=== PATIENT | male | born 1970 | race Caucasian/White ===

== ENCOUNTER 2020-05-15 17:19 | Outpatient (REF) | payer MEDICAID, SELFPAY | END 2020-05-15 17:20 | disposition home or self-care (01) | LOC: HO.LAB 17:19 | PROVIDERS: Visit Provider Internal Medicine | DX: Z20.828 Contact with and (suspected) exposure to other viral communicable diseases (principal) | CPT/HCPCS: C9803; U0003 ==

== ENCOUNTER 2020-07-07 10:43 | Outpatient (REF) | payer MEDICAID, SELFPAY ==
--- NOTE | 2020-07-07 10:53 | XR_ITS ---
EXAMINATION: XR LUMBOSACRAL SPINE CLINICAL INFORMATION: Lower back pain. COMPARISON: Lumbar spine radiographs dated 07/13/2018. TECHNIQUE: Three views of the lumbosacral spine. FINDINGS: Normal vertebral body alignment. The lumbar lordosis is maintained. No acute fracture or subluxation. No loss of vertebral body height. Mild loss of intervertebral disc height with anterior endplate osteophytes at L5-S1. No lytic or blastic osseous lesion. No abnormal soft tissue calcification. XR/XR lumbar spine 2-3V IMPRESSION: [id number] degenerative disc disease at L5-S1.
== END 2020-07-07 10:44 | disposition home or self-care (01) ==
LOC: HO.XRAY 10:43
PROVIDERS: PCP Internal Medicine; Visit Provider Internal Medicine
DX: M54.5 Low back pain (principal)
CPT/HCPCS: 72100

== ENCOUNTER → 2020-07-13 14:31 | Outpatient (BNVA) | payer MEDICAID, SELFPAY | PROVIDERS: PCP Internal Medicine; Visit Provider Anesthesiology | DX: M54.5 Low back pain (principal) | CPT/HCPCS: 99202 ==

== ENCOUNTER 2020-08-03 13:21 | Outpatient (REF) | payer MEDICAID, SELFPAY ==
--- NOTE | ~2020-08-03 | CT_ITS ---
EXAMINATION: CT PELVIS WITHOUT CONTRAST CLINICAL INFORMATION: Low back pain. COMPARISON: None TECHNIQUE: Helical scanning was performed with submillimeter collimation through the pelvis. Sagittal and coronal multiplanar 2-D reconstructions were obtained. This CT examination was performed using dose optimization techniques as appropriate, variously including the following: *Automated exposure control *Adjustment of mA and/or kV according to patient size (this includes techniques or standardized protocols for targeted exams where dose is matched to indication/reason for exam; i.e. extremities or head) *Use of iterative reconstruction technique DLP: 2103 mGy-cm FINDINGS: PELVIS: There is scattered sigmoid and visualized colonic diagnosis without any mural thickening and pericolic fat stranding. The bladder is nondistended. There are several phleboliths in the pelvis. The prostate gland is normal size with central gland calcification. There is no evidence of abdominal wall hernia. There is round soft tissue mass along the posterior abdomen measuring 10.7 x 8.7 cm and 49 Hounsfield units, likely hematoma or solid lesion. There is punctate fat within measuring -42 Hounsfield units. OSSEOUS STRUCTURES: There are degenerative disc changes in L5-S1 disc level with endplate Schmorl's node and vacuum disc phenomena. CT/CT pelvis wo con IMPRESSION: Moderate size well-defined round soft tissue mass along the posterior abdominal wall. Differential diagnoses includes hematoma, less likely lymphangioma or a solid mass.
== END 2020-08-03 13:22 | disposition home or self-care (01) ==
LOC: HO.CT 13:21
PROVIDERS: Visit Provider Anesthesiology
DX: M54.5 Low back pain (principal)
CPT/HCPCS: 72192

== ENCOUNTER → 2020-09-02 15:40 | Outpatient (BNVA) | payer MEDICAID, SELFPAY | PROVIDERS: PCP Internal Medicine; Visit Provider Anesthesiology ==

== ENCOUNTER → 2020-09-14 13:38 | Outpatient (BNVA) | payer MEDICAID, SELFPAY | PROVIDERS: PCP Internal Medicine; Visit Provider Surgery | DX: S30.1XXA Contusion of abdominal wall, initial encounter (principal); E66.01 Morbid (severe) obesity due to excess calories | CPT/HCPCS: 99202 ==

== ENCOUNTER 2023-06-15 21:46 | Emergency (ER) | payer MEDICARE, MEDICAID, SELFPAY ==
--- NOTE | 2023-06-15 | ECG_ITS ---
Test Reason : AFIB Blood Pressure : / mmHG Vent. Rate : 109 BPM Atrial Rate : 109 BPM P-R Int : 168 ms QRS Dur : 082 ms QT Int : 328 ms P-R-T Axes : 065 -13 040 degrees QTc Int : 441 ms Sinus tachycardia Nonspecific ST and T wave abnormality Abnormal ECG No previous ECGs available Referred By: Generic ED Physician Electronically Signed By:RICHARD FATIMA MD
[2023-06-15 22:36] VITALS: BP 154/89; PULSE 114; RESP 18; TEMP 36.9; O2SAT 96; BMI 36.2
[2023-06-15 23:22] LABS: COVID-19 Test Positive (Negative); IDNOW Serial# BCCEAD1C
--- NOTE | 2023-06-16 00:46 | ED.URI ---
HPI - URI/Sore Throat General Chief Complaint: Upper Respiratory Symptoms Stated Complaint: not feeling well/home test covid+ Time Seen by Provider: 06/16/23 00:44 Source: patient Mode of arrival: ambulatory Limitations: no limitations History of Present Illness HPI Narrative: 53 yo male with PMH of afib and HTN - he is on eliquis, vaccinated against COVID x 4. He had sore throat and some feverish chills feeling but did not take tylenol. He states he has no CP/SOB he states he is actually not feeling bad. He was just nervous because last time he had COVID he was hospitalized for one week. He wants paxlovid or option for paxlovid. thinks his HR is up as he is anxious MD elicited complaint: fever and sore throat Onset (ago): day(s) (1) Consistency: improved (states it is almost gone) Severity: mild Description of mucous: clear Able to tolerate fluids by mouth: Yes Exacerbating factors: swallowing Relieving factors: nothing Associated symptoms: fever and chills Treatments prior to arrival: none Related Data Home Medications Medication Instructions Recorded Confirmed fluvoxamine 50 mg tablet 50 mg PO DAILY 07/13/20 09/14/20 hydrochlorothiazide 25 mg tablet 25 mg PO DAILY 07/13/20 09/14/20 lisinopril 5 mg tablet 5 mg PO DAILY 07/13/20 09/14/20 aripiprazole 5 mg tablet 5 mg PO DAILY 09/14/20 09/14/20 Previous Rx's Medication Instructions Recorded azithromycin 250 mg tablet See Rx Instructions PO .COMPLEX #6 04/04/22 tabs prednisone 20 mg tablet 60 mg (3 x 20 mg) PO DAILY #9 tabs 04/04/22 nirmatrelvir 300 mg (150 mg See Rx Instructions PO .COMPLEX 06/16/23 x2)-ritonavir 100 mg tablet,dose #30 ea pack (Paxlovid) Allergies Allergy/AdvReac Type Severity Reaction Status Date / Time No Known Allergies Allergy Verified 06/15/23 22:36 Review of Systems Review of Systems: Constitutional : positive Fever, positive Chills ENT/Mouth : positive sore throat, no runny nose Eyes: No Discharge Cardiovascular : No Chest Pain, No SOB Respiratory : No Cough, No Sputum Gastrointestinal : No Nausea, No Vomiting, No Diarrhea Genitourinary : No Dysuria, No Urinary Frequency Musculoskeletal : no Myalgia Skin : No rash Neuro : No Headache All other systems reviewed and are negative [facility] Past Medical History Attestation statement: The following information was validated with the patient. Medical History Morbid obesity Hematoma Abdominal wall mass Low back pain Low back pain Surgical History H/O hernia repair H/O elbow surgery History of repair of anterior cruciate ligament of left knee H/O excision of tumor of brain meninges Social History Social History Alcohol intake: never Physical Exam Vital Signs: Vital Signs: Last Vital Signs Temp 98.5 F 06/15/23 22:36 Pulse 114 H 06/15/23 22:36 Resp 18 06/15/23 22:36 BP 154/89 H 06/15/23 22:36 Pulse Ox 96 06/15/23 22:36 O2 Del Method Room Air 06/15/23 22:36 BMI result Body Mass Index 36.2 Appearance: Alert. Oriented X3. No acute distress. Eyes: Pupils equal, round and reactive to light. ENT: Pharynx mild erythema but no exudates Neck: Normal inspection. Neck supple. CVS: Normal heart rate and rhythm. Pulses normal. Respiratory: No respiratory distress. Breath sounds normal. Abdomen: Soft and nontender. Skin: Skin warm and dry. Normal skin color. Normal skin turgor. Extremities: No lower extremity edema. Neuro: Oriented X 3. No motor deficit. No sensory deficit. Medical Decision Making Medical Decision Making MDM Narrative: 53 yo male with HTN, afib on eliquis vaccinated for COVID x 4 here with mild sore throat and fevers /chills x 1 day he wants paxlovid reviewed all medications has to hold his eplerenone he is going to call his corrections officer first in the AM before he starts this. He has no CP/SOB to suggest ACS/VTE or pneumonia has clear lungs and is not hypoxic. Tachycardia likey due to fever or anxiety. Given precautions to return. Has no known issues with kidneys and no history of renal failure Differential Diagnosis Differential Diagnoses: The differential diagnosis associated with the presentation includes viral syndrome has known covid from test at home Admission/Observation Consideration of admission/observation: Escalation of care including admission/observation considered no hypoxia relatively asymptomatic can go home with medicatoins Lab Data MDM Lab Attestation statement: I reviewed the patient's lab results. Labs: Lab Results 06/15/23 Range/Units 22:54 COVID-19 (DERIK) Positive A (Negative) COVID-19 Clin Com See Note Independent Interpretation I performed an independent interpretation of an: EKG Interpretation: Rate: 109 Rhythm: sinus tachycardia [place]: normal Normal P waves. Normal SANDY. Normal QRS complex. ST T wave : no THOMAS, nonspecific ST T wave changes inf leads qTC: normal prior studies: no acute ischemia The study has been interpreted contemporaneously by me. . External Record Review External record reviewed: Office record Prescription Management I considered prescription management with: Antiviral Discharge Plan Discharge Clinical Impression: COVID-19 Patient Disposition: Home, Self-Care Instructions: COVID-19 (Coronavirus Disease 2019) (ED) Additional Instructions: return for worsening symptoms - vomiting, inability to eat or drink, chest pain, trouble breathing, O2 saturations below 92% while on paxlovid you cannot take eplerenone and hold it for 3 days after. you need to ask your corrections officer if this is okay before you start paxlovid - must be started within 5 days of symptom onset. prescription will be waiting in pharmacy Prescriptions: New Paxlovid 300 mg (150 mg x 2)-100 mg tablets,dose pack See Rx Instructions .ROUTE .COMPLEX Qty: 30 0RF Rx Instructions: take TWO 150 mg tablets of nirmatrelvir with ONE 100 mg tablet of ritonavir twice daily for 5 days No Action azithromycin 250 mg tablet See Rx Instructions PO .COMPLEX Qty: 6 0RF Rx Instructions: take 500 mg today (day 1), then 250 mg for 4 days (days 2-5) PO prednisone 20 mg tablet 60 mg PO DAILY Qty: 9 0RF fluvoxamine 50 mg tablet 50 mg PO DAILY hydrochlorothiazide 25 mg tablet 25 mg PO DAILY lisinopril 5 mg tablet 5 mg PO DAILY aripiprazole 5 mg tablet 5 mg PO DAILY
--- NOTE | 2023-06-16 01:47 | PC.NURSE ---
this nurse reviewed discharge instruction with pt only, pt verbalized understanding, MILE Joya notified.
== END 2023-06-16 01:48 | disposition home or self-care (01) ==
PROVIDERS: Emergency Provider Emergency Medicine
DX: U07.1 COVID-19 (principal); R00.0 Tachycardia, unspecified; Z79.899 Other long term (current) drug therapy
CPT/HCPCS: 87635; 93005; 99283

== ENCOUNTER → 2023-06-15 22:52 | Outpatient (BNV) | payer MEDICARE, MEDICAID, SELFPAY | PROVIDERS: Emergency Provider Emergency Medicine; Visit Provider Internal Medicine Cardiovascular Disease | DX: R00.0 Tachycardia, unspecified (principal); R94.31 Abnormal electrocardiogram [ECG] [EKG] | CPT/HCPCS: 93010 ==